=== PATIENT | female | born 1985 | race Caucasian/White ===

== ENCOUNTER 2016-08-18 16:42 | Emergency (ER) | payer BC ==
[~2016-08-18] VITALS: Wt 88.0 kg
[~2016-08-18 16:42] MED LIST: CHOLESTEROL MED; PANT40TA4 PO
[2016-08-18] MEDS ORDERED: DIPHENHYDRAMINE 50 MG INJ IV ONE (18:30)
[2016-08-18] MEDS ORDERED: SOD CHLORIDE 0.9% 1,000 ML IV ONE (18:30)
[2016-08-18] MEDS ORDERED: METOCLOPRAMIDE 10 MG INJ IV ONE (18:30)
[2016-08-18] MEDS ORDERED: SUMA6VIA16 SQ (20:10)
[2016-08-18 20:33] VITALS: BP 135/84; PULSE 84; RESP 20; TEMP 98.2
--- NOTE | 2016-08-22 18:30 | ERD ---
DATE OF SERVICE: 08/18/2016 HISTORY OF PRESENT ILLNESS: This 31-year-old female presents to the emergency room for right-sided throbbing migraine headache that is similar to her previous migraines. It was not responding to ove [id number]-afjmzwk medications. She has no neurologic deficits. headache did not come on suddenly but did gradually get worse. REVIEW OF SYSTEMS: A 10-point review of systems negative except as in the HPI. PAST SURGICAL HISTORY: Gallbladder, right elbow, hysterectomy. PAST MEDICAL HISTORY: Hypercholesterolemia, migraines. SOCIAL HISTORY: Denies tobacco, alcohol and other drugs. FAMILY HISTORY: Noncontributory. PHYSICAL EXAMINATION VITAL SIGNS: Temperature 98.2, pulse 84, blood pressure 135/84, respirations 20, oxygen saturation 100% on room air. EMERGENCY DEPARTMENT COURSE AND MEDICAL DECISION MAKING: The patient is administered migraine cockt ail of normal saline IV, Benadryl IV, Reglan IV. This quickly reduced her headache until she had no headache anymore. She had complained of some right facial numbness as well which was resolved comp letely. We are going to discharge her with Imitrex injections. Primary care followup in next 2 t o 3 days and return precautions given. DISCHARGE DIAGNOSES: 1. Migraine headache. 2. Facial paresthesia. DISPOSITION: Home in stable condition. Dictated By: KENZIE BATES Conf#: [id number] DID#: [id number]
--- NOTE | 2016-09-20 03:27 | QN ---
Documentation Comment This note is an addendum to discharge note from 08/18/16. Physical Exam: General: No distress HEENT: Normocephalic, atraumatic, EOMI, PERRL Neck: No JVD or meningismus Cardiac:RRR Lungs. CTAB Skin: No rashes Neuro: A and O x 3, CN II-XII intact, no cerebellar deficits, normal cristian Ext: No cyanosis or edema KENZIE GALEANA DO Sep 20, 2016 03:27
== END 2016-08-18 20:33 | disposition home or self-care (01) ==
LOC: FTE 16:42
DX: G43.909 Migraine, unspecified, not intractable, without status migrainosus (principal); R20.8 Other disturbances of skin sensation
CPT/HCPCS: 96374; 96375; J1200; J2765; J7030; Z7502

== ENCOUNTER 2016-09-16 17:55 | Emergency (ER) | payer SELFPAY ==
[~2016-09-16] VITALS: Wt 90.0 kg
[~2016-09-16 17:55] MED LIST changes: +SUMA6VIA16 SQ
== END 2016-09-16 21:40 | disposition left against medical advice (07) ==
LOC: FTE 17:55
DX: Z53.21 Procedure and treatment not carried out due to patient leaving prior to being seen by health care provider (principal)

== ENCOUNTER 2017-03-30 14:53 | Emergency (ER) | payer BC ==
[~2017-03-30] VITALS: Ht 157.5 cm; Wt 97.0 kg
[2017-03-30 15:15] VITALS: Ht 157.5 cm; Wt 97.0 kg
[2017-03-30] MEDS ORDERED: SOD CHLORIDE 0.9% 1,000 ML IV STA (16:15)
[2017-03-30] MEDS ORDERED: KETOROLAC 30 MG INJ IV STA (16:15)
[2017-03-30] MEDS ORDERED: ONDANSETRON 4 MG INJ IV STA (16:15)
--- NOTE | 2017-03-30 16:44 | ERA ---
ER Documentation Chief Complaint Date/Time DATE: 03/30/17 TIME: 16:42 Chief Complaint RLQ pain worse with movement, nausea, no vomiting or diarrhea HPI 32-year-old female with a chief complaints of abdominal pain. No similar symptoms in past. History of cholecystectomy, bilateral salpingo-oophorectomy. No similar symptoms in past. Denies alcohol abuse, drug use, sick contacts. Has felt feverish but has not taken temperature. Advil taken this morning with minimal to moderate relief. No other aggravating/alleviating factors. Nursing denies Patient has no other complaints and describes no other associated manifestations. Nursing notes have been reviewed and are consistent with history given. ROS All systems reviewed and are negative except as per history of present illness. Medications Home Meds Active Scripts Sumatriptan Succinate* (Imitrex* Inj) 6 Mg/0.5 Ml Vial, 6 MG SQ DAILY for HEADACHE, #10 VIAL MAX 6 mg/dose, repeat in 1 hour if needed. MAX 12 mg/24 hours Prov:KENZIE GALEANA DO 08/18/16 Reported Medications [Cholesterol Med] No Conflict Check 04/13/16 Pantoprazole* (Pantoprazole*) 40 Mg Tablet.dr, 40 MG PO AC BREAKFAST, TAB 04/13/16 Allergies Allergies: Coded Allergies: azithromycin (Verified Allergy, Unknown, HIVES, 04/13/16) meperidine (Verified Allergy, Unknown, hives, 04/13/16) morphine (Verified Allergy, Unknown, HIVES, 04/13/16) PMhx/Soc History of Surgery: Yes (YEFRI, LAP CHOLEY RIGHT ELBOW , partial hysterectomy ,bi -lateraoophorectomy ) Anesthesia Reaction: No Hx Neurological Disorder: No Hx Respiratory Disorders: No Hx Cardiac Disorders: Yes (HIGH CHOL) Hx Psychiatric Problems: No Hx Miscellaneous Medical Probl: No (Devine's esaphogus ) Hx Alcohol Use: Yes (RARELY) Hx Substance Use: Yes Hx Tobacco Use: Yes Smoking Status: Current some day smoker Physical Exam Vitals Vital Signs Date Time Temp Pulse Resp B/P Pulse Ox O2 Delivery O2 Flow Rate FiO2 03/30/17 15:15 98.4 86 18 136/85 98 Physical Exam Const: Morbidly obese 32-year-old female no acute distress laying on the gurney with initial presentation Abd: Mild right upper quadrant pain. Soft, no rebounding or guarding. Negative Patel sign. Normal bowel sounds auscultated in all 4 quadrants. Percussion unremarkable. Negative Rovsing's, obturators and Patel signs. No McBurney's point tenderness. Head: Atraumatic Eyes: Normal Conjunctiva, PERRLA, EOMI bilaterally. ENT: Normal External Ears, Nose and Mouth. Neck: No lymphadenopathy or other masses palpated. Full range of motion..~ No meningismus. Resp: Clear to auscultation bilaterally Cardio: Regular rate and rhythm, no murmurs Skin: No petechiae or rashes Back: No midline or flank tenderness Ext: No cyanosis, or edema Neur: Awake and alert Psych: Normal Mood and Affect Result Diagram: 03/30/17 1640 03/30/17 1640 Results 24 hrs Laboratory Tests Test 03/30/17 16:40 White Blood Count 10.010^3/ul Red Blood Count 4.5610^6/ul Hemoglobin 13.2g/dl Hematocrit 39.3% Mean Corpuscular Volume 86.2fl Mean Corpuscular Hemoglobin 28.9pg Mean Corpuscular Hemoglobin Concent 33.6g/dl Red Cell Distribution Width 12.9% Platelet Count 89528^3/UL Mean Platelet Volume 11.3fl Neutrophils % 60.5% Lymphocytes % 31.2% Monocytes % 5.1% Eosinophils % 1.8% Basophils % 0.8% Nucleated Red Blood Cells % 0.0/100WBC Neutrophils # (Manual) 6.010^3/ul Lymphocytes # 3.110^3/ul Monocytes # 0.510^3/ul Eosinophils # 0.210^3/ul Basophils # 0.110^3/ul Nucleated Red Blood Cells # 0.010^3/ul Urine Color STRAW Urine Clarity CLEAR Urine pH 6.0 Urine Specific [place] 1.016 Urine Ketones NEGATIVEmg/dL Urine Nitrite NEGATIVEmg/dL Urine Bilirubin NEGATIVEmg/dL Urine Urobilinogen NEGATIVEmg/dL Urine Leukocyte Esterase NEGATIVELeu/ul Urine Hemoglobin NEGATIVEmg/dL Urine Glucose NEGATIVEmg/dL Urine Total Protein NEGATIVEmg/dl Sodium Level 138mmol/L Potassium Level 4.1mmol/L Chloride Level 105mmol/L Carbon Dioxide Level 25mmol/L Anion Gap 12 Blood Urea Nitrogen 13mg/dl Creatinine 0.69mg/dl Glucose Level 95mg/dl Calcium Level 9.7mg/dl Total Bilirubin 0.2mg/dl Direct Bilirubin 0.00mg/dl Indirect Bilirubin 0.2mg/dl Aspartate Amino Transf (AST/SGOT) 44IU/L Alanine Aminotransferase (ALT/SGPT) 82IU/L Alkaline Phosphatase 122IU/L Total Protein 7.8g/dl Albumin 4.0g/dl Globulin 3.80g/dl Albumin/Globulin Ratio 1.05 Lipase 73U/L Current Medications Medications (Trade) Dose Ordered Sig/Keith Route PRN Reason Start Time Stop Time Status Last Admin Dose Admin Sodium Chloride (NS) 1,000 ml @ 1,000 mls/hr Q1H STAT IV 03/30/17 16:15 03/30/17 17:14 DC 03/30/17 16:42 Ondansetron HCl (Zofran Inj) 4 mg ONCE STAT IV 03/30/17 16:15 03/30/17 16:17 DC 03/30/17 16:43 Ketorolac Tromethamine (Toradol) 30 mg ONCE STAT IV 03/30/17 16:15 03/30/17 16:17 DC 03/30/17 16:43 Procedures/MDM as described in history and physical examination. test negative.. CBC: Unremarkable CMP: ALT 82. Alk phos 122. Lipase: Within normal limits Urinalysis: Unremarkable CT was obtained, read by the radiologist, given the following impression: Advanced hepatic steatosis and hepatomegaly. This is a potential cause for right upper quadrant pain. Recommend correlation with liver tests to evaluate for potential steatohepatitis. Prominent right lower quadrant mesenteric lymph nodes may indicate mesenteric adenitis. Appendix is normal. Punctate nonobstructing calculus right kidney and punctate calculus adherent to the anterior wall of the urinary bladder that may be situated in a small urachal remnant. Negative for obstructing calculi. Most of the diagnosis of steatohepatitis versus abdominal pain of unknown etiology. At this time I do not suspect pneumonia, cholangitis, cholecystitis, intestinal ischemia or pyelonephritis. As well as acute hepatitis, appendicitis , acute pancreatitis, or pneumonia. I reviewed these findings with my attending Dr. Celeste montelongo who agrees with the assessment and plan. Upon reevaluation the abdomen has improved and is nontender in the right upper quadrant epigastric regions. Abdomen remains unremarkable in all other areas. The patient is well appearing, and tolerates PO. I have spoke with the patient regarding their condition and future management. They have verbally responded that they understand their status and treatment plan. The patients vitals are stable, and their current condition is appropriate for discharge. The patient will be given discharge instructions with return precautions. Discharge medications: Zofran ODT every 6 hours as needed for nausea Departure Diagnosis: Primary Impression: Abdominal pain Qualified Code: R10.11 - Right upper quadrant abdominal pain Condition: Serious Additional Instructions: Follow up with your PCP within the next 1-3 days for a more thorough evaluation and a possible referral to a specialist. Return the the emergency department immediately if symptoms worsen or change. If you have any questions regarding medications, ask your pharmacist or us before you leave. If any adverse reactions occur while taking your medications, discontinue the treatment and return to the emergency department immediately. Take your medications as directed, and complete the entire course of treatment. GRAYSON BRADLEY PA-C Mar 30, 2017 16:44
[2017-03-30 17:12] LABS: BASOPHIL # 0.1 10^3/ul (0.0-0.1); BASOPHILS % 0.8 % (0.0-2.0); EOSINOPHILS # 0.2 10^3/ul (0.0-0.5); EOSINOPHILS % 1.8 % (0.0-7.0); HEMATOCRIT 39.3 % (37.0-47.0); HEMOGLOBIN 13.2 g/dl (12.0-16.0); LYMPHOCYTES # 3.1 10^3/ul (0.8-2.9); LYMPHOCYTES % 31.2 % (15.0-51.0); MEAN CORPUSCULAR HEMOGLOBIN 28.9 pg (29.0-33.0); MEAN CORPUSCULAR HGB CONC 33.6 g/dl (32.0-37.0); MEAN CORPUSCULAR VOLUME 86.2 fl (82.0-101.0); MEAN PLATELET VOLUME 11.3 fl (7.4-10.4); MONOCYTE # 0.5 10^3/ul (0.3-0.9); MONOCYTES % 5.1 % (0.0-11.0); NEUTROPHILS % 60.5 % (39.0-77.0); PLATELET COUNT 283 10^3/UL (140-415); RED BLOOD COUNT 4.56 10^6/ul (4.20-5.40); RED CELL DISTRIBUTION WIDTH 12.9 % (11.5-14.5)
[2017-03-30 17:17] LABS: ADD UMIC NO; UR ASCORBIC ACID NEGATIVE (NEGATIVE); UR BILIRUBIN (Dip) NEGATIVE (NEGATIVE); UR BLOOD (Dip) NEGATIVE (NEGATIVE); UR CLARITY CLEAR (CLEAR); UR COLOR STRAW (YELLOW); UR GLUCOSE (Dip) NEGATIVE (NEGATIVE); UR KETONES (Dip) NEGATIVE (NEGATIVE); UR LEUKOCYTE ESTERASE (Dip) NEGATIVE Leu/ul (NEGATIVE); UR NITRITE (Dip) NEGATIVE (NEGATIVE); UR SPECIFIC GRAVITY (Dip) 1.016 (1.003-1.030); UR TOTAL PROTEIN (Dip) NEGATIVE (NEGATIVE); UR UROBILINOGEN (Dip) NEGATIVE (NEGATIVE)
[2017-03-30 17:31] LABS: ALBUMIN/GLOBULIN RATIO 1.05; BILIRUBIN,INDIRECT 0.2 mg/dl (0-1.1); BILIRUBIN,TOTAL 0.2 mg/dl (0.2-1.3); CALCIUM 9.7 mg/dl (8.4-10.2); CREATININE 0.69 mg/dl (0.44-1.00); POTASSIUM 4.1 mmol/L (3.5-5.1); TOTAL PROTEIN 7.8 g/dl (6.1-8.1)
--- NOTE | 2017-03-30 18:03 | RADRPT ---
PROCEDURE: CT ABDOMEN AND PELVIS WITHOUT CONTRAST: CLINICAL INDICATION: 32-year of age, female , right lower quadrant abdominal pain. COMPARISON: None available. TECHNIQUE: CT of the abdomen and pelvis was performed without intravenous contrast. Oral contrast wa s not administered prior to the examination. Coronal and sagittal reformatted images were obtained from the axial source images. Images were revi ewed on a high-resolution PACS workstation. Dose information: Based on a 32 cm phantom, the estimated radiation dose (CTDIvol mGy) for each seri es in this exam is 21.8. The estimated cumulative dose (DLP mGy-cm) is 1221 One or more of the following dose reduction techniques were used: - Automated exposure control. - Adjustment of the mA and/or kV according to patient size. - Use of iterative reconstruction technique. FINDINGS: In the absence of intravenous contrast, the study constitutes a limited assessment of the solid orga ns, bowel and vessels. LUNG BASES: Normal noncontrast appearance. ABDOMEN/PELVIS: Liver: Advanced hepatic steatosis. Hepatomegaly. Right hepatic lobe measures 25 cm in length. Gallbladder: Status post cholecystectomy. Bile ducts: No intrahepatic or extrahepatic biliary duct dilatation. Spleen: Normal noncontrast appearance. Pancreas: Normal noncontrast appearance. Adrenal glands: Normal noncontrast appearance. Kidneys and ureters: Punctate nonobstructing calculus lower pole right kidney. Kidneys are otherwise normal. Negative for ureteral calculi or hydronephrosis. Aorta and IVC: Normal noncontrast appearance. Lymph nodes: There are enlarged right lower quadrant mesenteric lymph nodes measuring up to 1.4 cm. Gastrointestinal tract: Normal noncontrast appearance. Appendix: Normal Bladder: There is a punctate calculus adherent to the anterior wall of the urinary bladder at the do me that may be situated in a small urachal remnant. Otherwise normal. Pelvic Organs: Uterus is absent. Ovaries are atrophic. Peritoneal cavity: No free fluid or free intraperitoneal air. Abdominal wall: Normal noncontrast appearance. BONES: Musculoskeletal: No suspicious bone lesions. IMPRESSION: Advanced hepatic steatosis and hepatomegaly. This is a potential cause for right upper quadrant pain . Recommend correlation with liver tests to evaluate for potential steatohepatitis. Prominent right lower quadrant mesenteric lymph nodes may indicate mesenteric adenitis. Appendix is normal. Punctate nonobstructing calculus right kidney and punctate calculus adherent to the anterior wall of the urinary bladder that may be situated in a small urachal remnant. Negative for obstructing calcu li. RPTAT: HCTS Viviana Terry Physician Date Time Electronically viewed and signed by Viviana Terry, Physician on 03/30/2017 18:02 CS/
[2017-03-30] MEDS ORDERED: ONDA4TAB14 PO (18:11)
== END 2017-03-30 20:46 | disposition home or self-care (01) ==
LOC: FTE 14:53
DX: R10.11 Right upper quadrant pain (principal); F17.210 Nicotine dependence, cigarettes, uncomplicated; R10.2 Pelvic and perineal pain
CPT/HCPCS: 36415; 74176; 80053; 81003; 83690; 85025; 96374; 96375; J1885; J2405; J7030; Z7502

== ENCOUNTER 2017-05-26 18:01 | Emergency (ER) | payer BC, OTHER ==
[~2017-05-26] VITALS: Ht 157.5 cm; Wt 97.7 kg
[~2017-05-26 18:01] MED LIST changes: +ONDA4TAB14 PO
[2017-05-26 18:04] VITALS: Ht 157.5 cm; Wt 97.7 kg
[2017-05-26] MEDS ORDERED: SOD CHLORIDE 0.9% 1,000 ML IV STA (20:05)
[2017-05-26] MEDS ORDERED: ONDANSETRON 4 MG INJ IV STA (20:05)
[2017-05-26] MEDS ORDERED: KETOROLAC 30 MG INJ IV STA (20:05)
[2017-05-26 20:51] LABS: BASOPHIL # 0.1 10^3/ul (0.0-0.1); BASOPHILS % 0.9 % (0.0-2.0); EOSINOPHILS # 0.1 10^3/ul (0.0-0.5); EOSINOPHILS % 1.2 % (0.0-7.0); HEMATOCRIT 38.1 % (37.0-47.0); HEMOGLOBIN 12.5 g/dl (12.0-16.0); LYMPHOCYTES # 3.8 10^3/ul (0.8-2.9); LYMPHOCYTES % 36.5 % (15.0-51.0); MEAN CORPUSCULAR HEMOGLOBIN 28.2 pg (29.0-33.0); MEAN CORPUSCULAR HGB CONC 32.8 g/dl (32.0-37.0); MEAN PLATELET VOLUME 11.4 fl (7.4-10.4); MONOCYTE # 0.7 10^3/ul (0.3-0.9); MONOCYTES % 6.3 % (0.0-11.0); NEUTROPHIL # 5.7 10^3/ul (1.6-7.5); NEUTROPHILS % 54.6 % (39.0-77.0); PLATELET COUNT 256 10^3/UL (140-415); RED BLOOD COUNT 4.43 10^6/ul (4.20-5.40); RED CELL DISTRIBUTION WIDTH 13.2 % (11.5-14.5); WHITE BLOOD COUNT 10.4 10^3/ul (4.8-10.8)
--- NOTE | 2017-05-26 20:51 | RADRPT ---
PROCEDURE: Renal US. CLINICAL INDICATION: Low back pain. TECHNIQUE: Multiple sonographic images of the kidneys and urinary bladder were obtained. The imag es were reviewed on a PACS workstation. COMPARISON: CT scan of the abdomen and pelvis dated 03/30/2017. FINDINGS: The right kidney measures 9.7 x 3.9 x 6.0 cm. The left kidney measures 9.7 x 4.6 x 4.9 cm. There is no renal mass. There is no hydronephrosis. There is no renal calculus. Renal parenchymal thickness is normal bilaterally. Echogenicity is normal bilaterally. The perirenal regions are normal with no fluid collection or mass. The urinary bladder is unremarkable. Incidental note is made of hepatomegaly and diffuse increased echogenicity of the liver consistent w ith fatty metamorphosis. IMPRESSION: 1. Normal kidneys and bladder. No hydronephrosis. 2. Hepatomegaly. 3. Fatty metamorphosis of the liver. RPTAT: QQ .Douglas Copeland MD, MD Date Time Electronically viewed and signed by .Douglas Copeland MD, on 05/26/2017 20:50 .R/
[2017-05-26 21:11] LABS: ALBUMIN/GLOBULIN RATIO 1.11; BILIRUBIN,INDIRECT 0.2 mg/dl (0-1.1); BILIRUBIN,TOTAL 0.2 mg/dl (0.2-1.3); CALCIUM 8.9 mg/dl (8.4-10.2); CREATININE 0.73 mg/dl (0.44-1.00); POTASSIUM 3.9 mmol/L (3.5-5.1); TOTAL PROTEIN 7.6 g/dl (6.1-8.1)
[2017-05-26 21:14] LABS: ADD UMIC YES; UR ASCORBIC ACID NEGATIVE (NEGATIVE); UR BILIRUBIN (Dip) NEGATIVE (NEGATIVE); UR BLOOD (Dip) 1+ mg/dL (NEGATIVE); UR CLARITY CLEAR (CLEAR); UR COLOR YELLOW (YELLOW); UR GLUCOSE (Dip) NEGATIVE (NEGATIVE); UR KETONES (Dip) NEGATIVE (NEGATIVE); UR LEUKOCYTE ESTERASE (Dip) NEGATIVE Leu/ul (NEGATIVE); UR NITRITE (Dip) NEGATIVE (NEGATIVE); UR RBC 1 /HPF (0-5); UR SPECIFIC GRAVITY (Dip) 1.025 (1.003-1.030); UR TOTAL PROTEIN (Dip) NEGATIVE (NEGATIVE); UR UROBILINOGEN (Dip) 1+ mg/dL (NEGATIVE)
[2017-05-26] MEDS ORDERED: HYDROmorphONE 1 MG/ML SYG IV STA (21:19)
[2017-05-26] MEDS ORDERED: TRAM50TA2 PO (21:50)
--- NOTE | 2017-05-26 21:59 | ERD ---
ER Documentation Chief Complaint Chief Complaint lower back pain radiating to rt lower abdomen x 3 days with deepali RAM 32-year-old female patient with a past medical history of Devine's esophagitis , status post cholecystectomy, hysterectomy, nephrolithiasis presents to the ED complaining of right flank pain that radiates down to her right lower quadrant that started about 3 days ago. Patient reports that this feels like her nephrolithiasis. States that she has some urgency to urinate this morning. Reports some slight nausea but denies any vomiting. Denies any hematuria, chest pain, shortness of breath, cough, fever, chills, saddle anesthesia, urine or bowel incontinence. ROS All systems reviewed and are negative except as per history of present illness. Medications Home Meds Active Scripts Tramadol HCl (Tramadol HCl) 50 Mg Tablet, 50 MG PO Q6H Y for PAIN, #12 TAB Prov:WILLARD SANCHEZ PA-C 05/26/17 Ondansetron (Ondansetron Odt) 4 Mg Tab.rapdis, 4 MG PO Q6H Y for NAUSEA AND/OR VOMITING, #10 TAB Prov:GRAYSON BRADLEY PA-C 03/30/17 Sumatriptan Succinate* (Imitrex* Inj) 6 Mg/0.5 Ml Vial, 6 MG SQ DAILY for HEADACHE, #10 VIAL MAX 6 mg/dose, repeat in 1 hour if needed. MAX 12 mg/24 hours Prov:KENZIE GALEANA DO 08/18/16 Reported Medications [Cholesterol Med] No Conflict Check 04/13/16 Pantoprazole* (Pantoprazole*) 40 Mg Tablet.dr, 40 MG PO AC BREAKFAST, TAB 04/13/16 Allergies Allergies: Coded Allergies: azithromycin (Verified Allergy, Unknown, HIVES, 04/13/16) meperidine (Verified Allergy, Unknown, hives, 04/13/16) morphine (Verified Allergy, Unknown, HIVES, 04/13/16) PMhx/Soc History of Surgery: Yes (YEFRI, LAP CHOLEY RIGHT ELBOW , partial hysterectomy ,bi -lateraoophorectomy ) Anesthesia Reaction: No Hx Neurological Disorder: No Hx Respiratory Disorders: No Hx Cardiac Disorders: Yes (HIGH CHOL) Hx Psychiatric Problems: No Hx Miscellaneous Medical Probl: No (Devine's esaphogus ) Hx Alcohol Use: Yes (RARELY) Hx Substance Use: Yes Hx Tobacco Use: Yes Smoking Status: Never smoker Physical Exam Vitals Vital Signs Date Time Temp Pulse Resp B/P Pulse Ox O2 Delivery O2 Flow Rate FiO2 05/26/17 18:04 98.3 82 18 136/72 98 Physical Exam Const: Smj-abf-coohdiqoc, well-nourished. In no acute distress. Head: Atraumatic, normocephalic Eyes: Normal Conjunctiva without injection. No purulent discharge. ENT: Normal external ear, nose. Moist oropharynx without tonsillar exudates. Non -erythematous pharynx. Uvula midline. No drooling. No trismus. Neck: No cervical midline tenderness. Full range of motion. No meningismus. No cervical lymphadenopathy. No JVD. Resp: Clear to auscultation bilaterally. No wheezing, rhonchi, rales, or crackles. No accessory muscle use. No retractions. Cardio: Regular rate and rhythm. No murmurs, rubs or gallops. Abd: Soft, nontender, non distended. Normal bowel sounds. No palpable masses. No rebound tenderness. No guarding. Negative McBurney's point. Negative psoas sign. Negative obturator sign. Skin: No petechiae or rashes Back: No midline tenderness. Right CVA tenderness. Ext: No cyanosis, or edema. Neur: Awake and alert. Normal gait. Normal coordination. Psych: Normal Mood and Affect Results 24 hrs Laboratory Tests Test 05/26/17 20:20 White Blood Count 10.410^3/ul Red Blood Count 4.4310^6/ul Hemoglobin 12.5g/dl Hematocrit 38.1% Mean Corpuscular Volume 86.0fl Mean Corpuscular Hemoglobin 28.2pg Mean Corpuscular Hemoglobin Concent 32.8g/dl Red Cell Distribution Width 13.2% Platelet Count 25549^3/UL Mean Platelet Volume 11.4fl Neutrophils % 54.6% Lymphocytes % 36.5% Monocytes % 6.3% Eosinophils % 1.2% Basophils % 0.9% Nucleated Red Blood Cells % 0.0/100WBC Neutrophils # 5.710^3/ul Lymphocytes # 3.810^3/ul Monocytes # 0.710^3/ul Eosinophils # 0.110^3/ul Basophils # 0.110^3/ul Nucleated Red Blood Cells # 0.010^3/ul Urine Color YELLOW Urine Clarity CLEAR Urine pH 6.0 Urine Specific [place] 1.025 Urine Ketones NEGATIVEmg/dL Urine Nitrite NEGATIVEmg/dL Urine Bilirubin NEGATIVEmg/dL Urine Urobilinogen 1+mg/dL Urine Leukocyte Esterase NEGATIVELeu/ul Urine Microscopic RBC 1/HPF Urine Microscopic WBC 1/HPF Urine Hemoglobin 1+mg/dL Urine Glucose NEGATIVEmg/dL Urine Total Protein NEGATIVEmg/dl Sodium Level 139mmol/L Potassium Level 3.9mmol/L Chloride Level 104mmol/L Carbon Dioxide Level 25mmol/L Anion Gap 14 Blood Urea Nitrogen 11mg/dl Creatinine 0.73mg/dl Glucose Level 98mg/dl Calcium Level 8.9mg/dl Total Bilirubin 0.2mg/dl Direct Bilirubin 0.00mg/dl Indirect Bilirubin 0.2mg/dl Aspartate Amino Transf (AST/SGOT) 46IU/L Alanine Aminotransferase (ALT/SGPT) 84IU/L Alkaline Phosphatase 126IU/L Total Protein 7.6g/dl Albumin 4.0g/dl Globulin 3.60g/dl Albumin/Globulin Ratio 1.11 Lipase 71U/L Current Medications Medications (Trade) Dose Ordered Sig/Keith Route PRN Reason Start Time Stop Time Status Last Admin Dose Admin Sodium Chloride (NS) 1,000 ml @ 1,000 mls/hr Q1H STAT IV 05/26/17 20:05 05/26/17 21:04 DC 05/26/17 20:37 Ketorolac Tromethamine (Toradol) 30 mg ONCE STAT IV 05/26/17 20:05 05/26/17 20:09 DC 05/26/17 20:37 Ondansetron HCl (Zofran Inj) 4 mg ONCE STAT IV 05/26/17 20:05 05/26/17 20:09 DC 05/26/17 20:37 Hydromorphone HCl (Dilaudid) 1 mg ONCE STAT IV 05/26/17 21:19 05/26/17 21:20 DC 05/26/17 21:23 Procedures/MDM 32-year-old female patient with a past medical history of Devine's esophagitis , status post cholecystectomy, hysterectomy, nephrolithiasis presents to the ED complaining of right flank pain that radiates down to her right lower quadrant started 3 days ago associated with nausea. Patient is afebrile and nontoxic- appearing. Patient has normal vital signs. Patient was further worked up with CBC, CMP, lipase, UA, renal ultrasound. Patient just received a CT of the abdomen and pelvis without contrast in March 2017 which showed no evidence of appendicitis however there was suspected nephrolithiasis. There is no indication to repeat a CT of the abdomen and pelvis without contrast at this time as the risks of radiation outweigh the benefits. Patient reports that this feels exactly like her kidney stone pain. Patient's pain and symptoms have improved after treatment with 30 mg IV Toradol, 1 L normal saline, 1 mg IV Dilaudid. CBC: No leukocytosis. No e/o of systemic infection. No e/o anemia. CMP: No e/o severe acidosis, alkalosis, renal failure, diabetic ketoacidosis, liver disease Lipase within normal limits. Urine: No leukocyte esterase, no nitrites, 1+ hematuria. Urine : Negative PROCEDURE: Renal US. CLINICAL INDICATION: Low back pain. TECHNIQUE: Multiple sonographic images of the kidneys and urinary bladder were obtained. The images were reviewed on a PACS workstation. COMPARISON: CT scan of the abdomen and pelvis dated 03/30/2017. FINDINGS: The right kidney measures 9.7 x 3.9 x 6.0 cm. The left kidney measures 9.7 x 4.6 x 4.9 cm. There is no renal mass. There is no hydronephrosis. There is no renal calculus. Renal parenchymal thickness is normal bilaterally. Echogenicity is normal bilaterally. The perirenal regions are normal with no fluid collection or mass. The urinary bladder is unremarkable. Incidental note is made of hepatomegaly and diffuse increased echogenicity of the liver consistent with fatty metamorphosis. IMPRESSION: 1. Normal kidneys and bladder. No hydronephrosis. 2. Hepatomegaly. 3. Fatty metamorphosis of the liver. Hematuria noted on urinalysis. Differentials include nephrolithiasis. Low suspicion for ectopic , ovarian torsion, gastritis, GERD, peptic ulcer disease, cholecystitis, choledocholithiasis, cholangitis, pancreatitis, appendicitis, bowel obstruction, ileus, volvulus, urinary tract infection, pyelonephritis, hepatitis, perforated viscus, diverticulitis, strangulated/ incarcerated hernia, DKA, acute abdomen, mesenteric ischemia or other emergent conditions. Discharge medications: Tramadol Follow up with primary care physician in 1-2 days for referral to urologist. Instructed patient to return to the ED sooner for any worsening symptoms. Patient's questions were answered. Patient understood and agreed with discharge plan. Patient discharged stable. Departure Diagnosis: Primary Impression: Flank pain Additional Impression: Abdominal pain Abdominal location: unspecified location Qualified Code: R10.9 - Abdominal pain, unspecified abdominal location Patient Instructions: Abdominal Pain, Flank Pain, Uncertain Cause, Kidney Stone (Urine) Referrals: [facility] YOU HAVE RECEIVED A MEDICAL SCREENING EXAM AND THE RESULTS INDICATE THAT YOU DO NOT HAVE A CONDITION THAT REQUIRES URGENT TREATMENT IN THE EMERGENCY DEPARTMENT. FURTHER EVALUATION AND TREATMENT OF YOUR CONDITION CAN WAIT UNTIL YOU ARE SEEN IN YOUR DOCTORS OFFICE WITHIN THE NEXT 1-2 DAYS. IT IS YOUR RESPONSIBILITY TO MAKE AN APPOINTMENT FOR FOLOW-UP CARE. IF YOU HAVE A PRIMARY DOCTOR --you should call your primary doctor and schedule an appointment IF YOU DO NOT HAVE A PRIMARY DOCTOR YOU CAN CALL OUR PHYSICIAN REFERRAL HOTLINE AT IF YOU CAN NOT AFFORD TO SEE A PHYSICIAN YOU CAN CHOSE FROM THE FOLLOWING [facility] [address] [facility]. [facility] [address] [facility]. [facility] [address] [facility] [facility] [address] [facility]. [facility] [address] [facility]. [facility]. [address] [facility]. [facility] YOU HAVE RECEIVED A MEDICAL SCREENING EXAM AND THE RESULTS INDICATE THAT YOU DO NOT HAVE A CONDITION THAT REQUIRES URGENT TREATMENT IN THE EMERGENCY DEPARTMENT. FURTHER EVALUATION AND TREATMENT OF YOUR CONDITION CAN WAIT UNTIL YOU ARE SEEN IN YOUR DOCTORS OFFICE WITHIN THE NEXT 1-2 DAYS. IT IS YOUR RESPONSIBILITY TO MAKE AN APPOINTMENT FOR FOLOW-UP CARE. IF YOU HAVE A PRIMARY DOCTOR --you should call your primary doctor and schedule and appointment IF YOU DO NOT HAVE A PRIMARY DOCTOR YOU CAN CALL OUR PHYSICIAN REFERRAL HOTLINE AT . IF YOU CAN NOT AFFORD TO SEE A PHYSICIAN YOU CAN CHOSE FROM THE FOLLOWING [facility]: [facility] [address] [place] [address] [facility] [address] [place] [address] [facility] + [facility] [address] [place] [address] [facility] URGENT CARE/SPECIALTIES Additional Instructions: Call your primary care doctor TOMORROW for an appointment during the next 2-3 days.See the doctor sooner or return here if your condition worsens before your appointment time. WILLARD SANCHEZ PA-C May 26, 2017 21:59 WILLARD SANCHEZ PA-C May 26, 2017 21:59
[2017-05-26 22:00] VITALS: BP 124/79; PULSE 74; RESP 18
--- NOTE | 2017-05-26 23:17 | ERD ---
ER Documentation Chief Complaint Chief Complaint lower back pain radiating to rt lower abdomen x 3 days with deepali ROS All systems reviewed and are negative except as per history of present illness. Medications Home Meds Active Scripts Tramadol HCl (Tramadol HCl) 50 Mg Tablet, 50 MG PO Q6H Y for PAIN, #12 TAB Prov:WILLARD SANCHEZ PA-C 05/26/17 Ondansetron (Ondansetron Odt) 4 Mg Tab.rapdis, 4 MG PO Q6H Y for NAUSEA AND/OR VOMITING, #10 TAB Prov:GRAYSON BRADLEY PA-C 03/30/17 Sumatriptan Succinate* (Imitrex* Inj) 6 Mg/0.5 Ml Vial, 6 MG SQ DAILY for HEADACHE, #10 VIAL MAX 6 mg/dose, repeat in 1 hour if needed. MAX 12 mg/24 hours Prov:KENZIE GALEANA DO 08/18/16 Reported Medications [Cholesterol Med] No Conflict Check 04/13/16 Pantoprazole* (Pantoprazole*) 40 Mg Tablet.dr, 40 MG PO AC BREAKFAST, TAB 04/13/16 Allergies Allergies: Coded Allergies: azithromycin (Verified Allergy, Unknown, HIVES, 04/13/16) meperidine (Verified Allergy, Unknown, hives, 04/13/16) morphine (Verified Allergy, Unknown, HIVES, 04/13/16) PMhx/Soc History of Surgery: Yes (YEFRI, LAP CHOLEY RIGHT ELBOW , partial hysterectomy ,bi -lateraoophorectomy ) Anesthesia Reaction: No Hx Neurological Disorder: No Hx Respiratory Disorders: No Hx Cardiac Disorders: Yes (HIGH CHOL) Hx Psychiatric Problems: No 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 Neck: Full range of motion..~ No meningismus. Resp: Clear to auscultation bilaterally Cardio: Regular rate and rhythm, no murmurs Abd: Soft, non tender, non distended. Normal bowel sounds Skin: No petechiae or rashes Back: No midline or flank tenderness Ext: No cyanosis, or edema Neur: Awake and alert Psych: Normal Mood and Affect Results 24 hrs Laboratory Tests Test 05/26/17 20:20 White Blood Count 10.410^3/ul Red Blood Count 4.4310^6/ul Hemoglobin 12.5g/dl Hematocrit 38.1% Mean Corpuscular Volume 86.0fl Mean Corpuscular Hemoglobin 28.2pg Mean Corpuscular Hemoglobin Concent 32.8g/dl Red Cell Distribution Width 13.2% Platelet Count 51203^3/UL Mean Platelet Volume 11.4fl Neutrophils % 54.6% Lymphocytes % 36.5% Monocytes % 6.3% Eosinophils % 1.2% Basophils % 0.9% Nucleated Red Blood Cells % 0.0/100WBC Neutrophils # 5.710^3/ul Lymphocytes # 3.810^3/ul Monocytes # 0.710^3/ul Eosinophils # 0.110^3/ul Basophils # 0.110^3/ul Nucleated Red Blood Cells # 0.010^3/ul Urine Color YELLOW Urine Clarity CLEAR Urine pH 6.0 Urine Specific [place] 1.025 Urine Ketones NEGATIVEmg/dL Urine Nitrite NEGATIVEmg/dL Urine Bilirubin NEGATIVEmg/dL Urine Urobilinogen 1+mg/dL Urine Leukocyte Esterase NEGATIVELeu/ul Urine Microscopic RBC 1/HPF Urine Microscopic WBC 1/HPF Urine Hemoglobin 1+mg/dL Urine Glucose NEGATIVEmg/dL Urine Total Protein NEGATIVEmg/dl Sodium Level 139mmol/L Potassium Level 3.9mmol/L Chloride Level 104mmol/L Carbon Dioxide Level 25mmol/L Anion Gap 14 Blood Urea Nitrogen 11mg/dl Creatinine 0.73mg/dl Glucose Level 98mg/dl Calcium Level 8.9mg/dl Total Bilirubin 0.2mg/dl Direct Bilirubin 0.00mg/dl Indirect Bilirubin 0.2mg/dl Aspartate Amino Transf (AST/SGOT) 46IU/L Alanine Aminotransferase (ALT/SGPT) 84IU/L Alkaline Phosphatase 126IU/L Total Protein 7.6g/dl Albumin 4.0g/dl Globulin 3.60g/dl Albumin/Globulin Ratio 1.11 Lipase 71U/L Current Medications Medications (Trade) Dose Ordered Sig/Keith Route PRN Reason Start Time Stop Time Status Last Admin Dose Admin Sodium Chloride (NS) 1,000 ml @ 1,000 mls/hr Q1H STAT IV 05/26/17 20:05 05/26/17 21:04 DC 05/26/17 20:37 Ketorolac Tromethamine (Toradol) 30 mg ONCE STAT IV 05/26/17 20:05 05/26/17 20:09 DC 05/26/17 20:37 Ondansetron HCl (Zofran Inj) 4 mg ONCE STAT IV 05/26/17 20:05 05/26/17 20:09 DC 05/26/17 20:37 Hydromorphone HCl (Dilaudid) 1 mg ONCE STAT IV 05/26/17 21:19 05/26/17 21:20 DC 05/26/17 21:23 Departure Diagnosis: Primary Impression: Flank pain Additional Impression: Abdominal pain Abdominal location: unspecified location Qualified Code: R10.9 - Abdominal pain, unspecified abdominal location Patient Instructions: Abdominal Pain, Flank Pain, Uncertain Cause, Kidney Stone (Urine) Referrals: [facility] YOU HAVE RECEIVED A MEDICAL SCREENING EXAM AND THE RESULTS INDICATE THAT YOU DO NOT HAVE A CONDITION THAT REQUIRES URGENT TREATMENT IN THE EMERGENCY DEPARTMENT. FURTHER EVALUATION AND TREATMENT OF YOUR CONDITION CAN WAIT UNTIL YOU ARE SEEN IN YOUR DOCTORS OFFICE WITHIN THE NEXT 1-2 DAYS. IT IS YOUR RESPONSIBILITY TO MAKE AN APPOINTMENT FOR FOLOW-UP CARE. IF YOU HAVE A PRIMARY DOCTOR --you should call your primary doctor and schedule an appointment IF YOU DO NOT HAVE A PRIMARY DOCTOR YOU CAN CALL OUR PHYSICIAN REFERRAL HOTLINE AT IF YOU CAN NOT AFFORD TO SEE A PHYSICIAN YOU CAN CHOSE FROM THE FOLLOWING FORMERLY [facility] [address] [facility]. [facility] [address] [facility]. [facility] [address] [facility]. [facility] [address] [facility]. [facility] [address] [facility] [facility] [address] [facility]. [facility] YOU HAVE RECEIVED A MEDICAL SCREENING EXAM AND THE RESULTS INDICATE THAT YOU DO NOT HAVE A CONDITION THAT REQUIRES URGENT TREATMENT IN THE EMERGENCY DEPARTMENT. FURTHER EVALUATION AND TREATMENT OF YOUR CONDITION CAN WAIT UNTIL YOU ARE SEEN IN YOUR DOCTORS OFFICE WITHIN THE NEXT 1-2 DAYS. IT IS YOUR RESPONSIBILITY TO MAKE AN APPOINTMENT FOR FOLOW-UP CARE. IF YOU HAVE A PRIMARY DOCTOR --you should call your primary doctor and schedule and appointment IF YOU DO NOT HAVE A PRIMARY DOCTOR YOU CAN CALL OUR PHYSICIAN REFERRAL HOTLINE AT . IF YOU CAN NOT AFFORD TO SEE A PHYSICIAN YOU CAN CHOSE FROM THE FOLLOWING [facility] INSTITUTIONS: [facility] [address] [place] [address] [facility] [address] [place] [address] [facility] [address] [place] [address] [facility] Additional Instructions: Call your primary care doctor TOMORROW for an appointment during the next 2-3 days.See the doctor sooner or return here if your condition worsens before your appointment time. WILLARD SANCHEZ PA-C May 26, 2017 22:02 [place] [address] [facility]RG[facility]SPECIALTIES Additional Instructions: Call your primary care doctor TOMORROW for an appointment during the next 2-3 days.See the doctor sooner or return here if your condition worsens before your appointment time. WILLARD SANCHEZ PA-C May 26, 2017 22:02
== END 2017-05-26 22:01 | disposition home or self-care (01) ==
LOC: FTE 18:01
DX: M54.5 Low back pain (principal); R11.0 Nausea; R10.31 Right lower quadrant pain; Z87.891 Personal history of nicotine dependence
CPT/HCPCS: 36415; 76775; 80053; 81001; 83690; 85025; 96374; 96375; J1170; J1885; J2405; J7030; Z7502

== ENCOUNTER 2017-07-21 07:46 | Emergency (ER) | END 2017-07-21 11:33 | disposition home or self-care (01) ==

== ENCOUNTER 2017-10-30 15:41 | Emergency (ER) | END 2017-10-30 18:09 | disposition home or self-care (01) ==

== ENCOUNTER 2018-04-19 17:50 | Emergency (ER) | END 2018-04-19 19:50 | disposition home or self-care (01) ==

== ENCOUNTER 2018-10-18 08:59 | Emergency (ER) | payer OTHER ==
[~2018-10-18] VITALS: Wt 84.1 kg
[~2018-10-18 08:59] MED LIST changes: +CEPH-443 PO; +CIPR-193 PO; +DIPH1TAB PO; +DOCU-144 PO; +IBUP-1541 PO; +IBUP-1542 PO; +ONDA4TAB8 PO; +POLY17PO6 PO; +TRAM50TA2 PO
[2018-10-18 09:00] VITALS: BP 129/82; PULSE 73; RESP 18
[2018-10-18] MEDS ORDERED: ONDANSETRON (ODT) 4 MG TAB ODT STA (09:36)
[2018-10-18] MEDS ORDERED: ONDA4TAB14 PO (10:16)
--- NOTE | 2018-10-18 10:19 | ERD ---
ER Documentation Chief Complaint Chief Complaint AP WITH VOMITIG TODAY HPI 33-year-old female presents the emergency department complaining of vomiting. Patient states that over the last 24 hours, she has had a low-grade fever as well as nonbilious, nonbloody emesis. She reports no localizing abdominal pain. She reports no urinary symptoms. Patient reports no diarrhea. She reports no vaginal bleeding or discharge. She reports no significant abdominal pain at this time the main discomfort is really more than nausea than it is discomfort. ROS All systems reviewed and are negative except as per history of present illness. Medications Home Meds Active Scripts Ondansetron (Ondansetron Odt) 4 Mg Tab.rapdis, 4 MG PO Q6H PRN for NAUSEA AND/OR VOMITING, #10 TAB Prov:DARIA FRANCE 10/18/18 Ondansetron Hcl* (Zofran*) 4 Mg Tablet, 4 MG PO Q8 for NAUSEA AND/OR VOMITING, #15 TAB Prov:PATRICIA OCONNELL MD 04/19/18 Diphenoxylate HCl/Atropine (Lomotil 2.5-0.025 mg Tablet) 1 Each Tablet, 1 TAB PO DAILY PRN for DIARRHEA, #5 TAB Prov:PATRICIA OCONNELL MD 04/19/18 Ciprofloxacin Hcl* (Ciprofloxacin Hcl*) 250 Mg Tablet, 250 MG PO BID for 5 Days, #10 TAB Prov:PATRICIA OCONNELL MD 04/19/18 Ondansetron Hcl* (Zofran*) 4 Mg Tablet, 4 MG PO Q6H for NAUSEA AND/OR VOMITING, #30 TAB Prov:DREA BURGESS 10/30/17 Ibuprofen* (Motrin*) 600 Mg Tab, 600 MG PO Q6, #30 TAB Prov:DREA BURGESS 10/30/17 Cephalexin* (Keflex*) 500 Mg Capsule, 500 MG PO BID for 7 Days, CAP Prov:DREA BURGESS 10/30/17 Docusate Sodium* (Colace*) 100 Mg Capsule, 100 MG PO TID, #30 CAP Prov:IRIS RIZO PA-C 07/21/17 Polyethylene Glycol* (Miralax*) 17 Gm Powd.pack, 17 GM PO DAILY, #7 Prov:IRIS RIZO PA-C 07/21/17 Ibuprofen* (Ibuprofen*) 400 Mg Tablet, 400 MG PO Q6H PRN for PAIN, #30 TAB Prov:IRIS RIZO PA-C 07/21/17 Tramadol HCl (Tramadol HCl) 50 Mg Tablet, 50 MG PO Q6H PRN for PAIN, #12 TAB Prov:WILLARD SANCHEZ PA-C 05/26/17 Ondansetron (Ondansetron Odt) 4 Mg Tab.rapdis, 4 MG PO Q6H PRN for NAUSEA AND/OR VOMITING, #10 TAB Prov:GRAYSON BRADLEY PA-C 03/30/17 Sumatriptan Succinate* (Imitrex* Inj) 6 Mg/0.5 Ml Vial, 6 MG SQ DAILY for HEADACHE, #10 VIAL MAX 6 mg/dose, repeat in 1 hour if needed. MAX 12 mg/24 hours Prov:KENZIE GALEANA DO 08/18/16 Reported Medications [Cholesterol Med] No Conflict Check 04/13/16 Pantoprazole* (Pantoprazole*) 40 Mg Tablet.dr, 40 MG PO AC BREAKFAST, TAB 04/13/16 Allergies Allergies: Coded Allergies: azithromycin (Verified Allergy, Unknown, HIVES, 10/30/17) meperidine (Verified Allergy, Unknown, hives, 10/30/17) morphine (Verified Allergy, Unknown, HIVES, 10/30/17) PMhx/Soc History of Surgery: Yes (hysterectomy, right elbow sx) Anesthesia Reaction: No Hx Neurological Disorder: No Hx Respiratory Disorders: Yes (SUMMERS'S ESOPHAGUS) Hx Cardiac Disorders: Yes (HTN) Hx Psychiatric Problems: No Hx Miscellaneous Medical Probl: Yes (HERNIA) Hx Alcohol Use: No Hx Substance Use: Yes (FORMER METH) Hx Tobacco Use: No Smoking Status: Never smoker Physical Exam Vitals Vital Signs Date Temp Pulse Resp B/P (MAP) Pulse Ox O2 O2 Flow FiO2 Time Delivery Rate 10/18/18 97.8 73 18 129/82 99 09:00 (98) Physical Exam GENERAL: The patient is well developed and appropriate for usual state of health in no apparent distress HEENT: Pupils equal, round, and reactive to light. EOMI. There is no scleral icterus. NECK: C-spine is soft and supple, there is no meningismus. There is no cervical lymphadenopathy. LUNGS: Clear to auscultation bilaterally. There are no rales, wheezes or rhonchi. HEART: Regular rate and rhythm, no murmurs, clicks, rubs or gallops. ABDOMEN: Soft, non-tender, non-distended. There are bowel sounds in all four quadrants. No rebound or guarding. No right lower quadrant tenderness. No CVA tenderness. EXTREMITIES: There is no peripheral cyanosis or edema. No focal swelling or erythema. NEURO: The patient moves all four extremities with 5/5 strength. Cranial nerves II - XII are intact. Normal gait. Alert and oriented SKIN: There is no apparent rash or petechiae. HEME/LYMPHATIC: There is no evidence of excessive bruising or lymphedema. PSYCHIATRIC: The patient does not appear anxious or depressed. Results 24 hrs Laboratory Tests Test 10/18/18 09:43 Urine Color LUNA Urine Clarity SLIGHTLY CLOUDY Urine pH 5.0 Urine Specific [place] 1.027 Urine Ketones TRACE mg/dL Urine Nitrite NEGATIVE mg/dL Urine Bilirubin NEGATIVE mg/dL Urine Urobilinogen 2+ mg/dL Urine Leukocyte Esterase NEGATIVE Emeka/ul Urine Microscopic RBC 1 /HPF Urine Microscopic WBC 1 /HPF Urine Squamous Epithelial Cells FEW /HPF Urine Mucus MODERATE /HPF Urine Hemoglobin 1+ mg/dL Urine Glucose NEGATIVE mg/dL Urine Total Protein NEGATIVE mg/dl Current Medications Medications Dose Sig/Keith Start Time Status Last (Trade) Ordered Route PRN Stop Time Admin Dose Reason Admin Ondansetron 4 mg ONCE STAT 10/18/18 DC 10/18/18 HCl (Zofran ODT 09:36 09:42 Odt) 10/18/18 09:37 Procedures/MDM Patient was taken to a room, seen and examined Medical decision making: Patient presents with fever and abdominal pain of uncertain etiology. Differential diagnosis considered includes appendicitis, diverticulitis, and other intra-abdominal medical and surgical concerns. Patient's urinalysis showed no evidence of urinary tract infection. Her clinical examination is not consistent with appendicitis. She is already had her uterus and gallbladder removed. After supportive care, she appears to be clinically nontoxic and appropriate for discharge. Departure Diagnosis: Primary Impression: Gastroenteritis Condition: Stable Patient Instructions: Vomiting (5Y-Adult) Additional Instructions: Try tylenol for the fever. Use the zofran for nausea. Return immediately if there is any pain in the right lower part of your abdomen, or if any of your symptoms get worse. DARIA FRANCE Oct 18, 2018 10:19
== END 2018-10-18 10:33 | disposition home or self-care (01) ==
LOC: FTE 08:59
DX: K52.9 Noninfective gastroenteritis and colitis, unspecified (principal); I10 Essential (primary) hypertension
CPT/HCPCS: 81001; Z7502; Z7610; 99283

== ENCOUNTER 2018-12-21 18:07 | Emergency (ER) | payer OTHER ==
[~2018-12-21] VITALS: Ht 157.5 cm; Wt 99.2 kg
[2018-12-21 18:13] VITALS: Ht 157.5 cm; Wt 99.2 kg
[2018-12-21] MEDS ORDERED: ONDANSETRON 4 MG INJ IV STA (19:04)
[2018-12-21] MEDS ORDERED: KETOROLAC 30 MG INJ IV STA (19:04)
[2018-12-21] MEDS ORDERED: KETOROLAC 60 MG INJ IM STA (19:37)
[2018-12-21] MEDS ORDERED: ONDANSETRON (ODT) 4 MG TAB ODT STA (19:37)
[2018-12-21] MEDS ORDERED: TRAM50TA PO (21:09)
[2018-12-21] MEDS ORDERED: IBUP-1542 PO (21:09)
--- NOTE | 2018-12-21 21:12 | ERD ---
ER Documentation Chief Complaint Chief Complaint SHOOTING PAIN @ INGUINAL RADIATES TO BACK AND LEGS HPI 33-year-old female presents with 3-day history of pain in her left lower abdomen. She also has low back pain rating to her anterior leg patient has a history of trauma or inciting events. She denies any bowel bladder incontinen ce, groin numbness, deficits, fevers, vomiting, shortness of breath. ROS All systems reviewed and are negative except as per history of present illness. Medications Home Meds Active Scripts Tramadol Hcl* (Ultram*) 50 Mg Tablet, 50 MG PO Q6H PRN for PAIN, #20 TAB Prov:KEVIN HOPPER MD 12/21/18 Ibuprofen* (Motrin*) 600 Mg Tab, 600 MG PO Q6, #20 TAB Prov:KEVIN HOPPER MD 12/21/18 Ondansetron (Ondansetron Odt) 4 Mg Tab.rapdis, 4 MG PO Q6H PRN for NAUSEA AND/OR VOMITING, #10 TAB Prov:DARIA FRANCE 10/18/18 Ondansetron Hcl* (Zofran*) 4 Mg Tablet, 4 MG PO Q8 for NAUSEA AND/OR VOMITING, #15 TAB Prov:PATRICIA OCONNELL MD 04/19/18 Diphenoxylate HCl/Atropine (Lomotil 2.5-0.025 mg Tablet) 1 Each Tablet, 1 TAB PO DAILY PRN for DIARRHEA, #5 TAB Prov:PATRICIA OCONNELL MD 04/19/18 Ciprofloxacin Hcl* (Ciprofloxacin Hcl*) 250 Mg Tablet, 250 MG PO BID for 5 Days, #10 TAB Prov:PATRICIA OCONNELL MD 04/19/18 Ondansetron Hcl* (Zofran*) 4 Mg Tablet, 4 MG PO Q6H for NAUSEA AND/OR VOMITING, #30 TAB Prov:DREA BURGESS 10/30/17 Ibuprofen* (Motrin*) 600 Mg Tab, 600 MG PO Q6, #30 TAB Prov:DREA BURGESS 10/30/17 Cephalexin* (Keflex*) 500 Mg Capsule, 500 MG PO BID for 7 Days, CAP Prov:DREA BURGESS 10/30/17 Docusate Sodium* (Colace*) 100 Mg Capsule, 100 MG PO TID, #30 CAP Prov:IRIS RIZO PA-C 07/21/17 Polyethylene Glycol* (Miralax*) 17 Gm Powd.pack, 17 GM PO DAILY, #7 Prov:IRIS RIZO PA-C 07/21/17 Ibuprofen* (Ibuprofen*) 400 Mg Tablet, 400 MG PO Q6H PRN for PAIN, #30 TAB Prov:IRIS RIZO PA-C 07/21/17 Tramadol HCl (Tramadol HCl) 50 Mg Tablet, 50 MG PO Q6H PRN for PAIN, #12 TAB Prov:WILLARD SANCHEZ PA-C 05/26/17 Ondansetron (Ondansetron Odt) 4 Mg Tab.rapdis, 4 MG PO Q6H PRN for NAUSEA AND/OR VOMITING, #10 TAB Prov:GRAYSON BRADLEY PA-C 03/30/17 Sumatriptan Succinate* (Imitrex* Inj) 6 Mg/0.5 Ml Vial, 6 MG SQ DAILY for HEADACHE, #10 VIAL MAX 6 mg/dose, repeat in 1 hour if needed. MAX 12 mg/24 hours Prov:KENZIE GALEANA DO 08/18/16 Reported Medications [Cholesterol Med] No Conflict Check 04/13/16 Pantoprazole* (Pantoprazole*) 40 Mg Tablet.dr, 40 MG PO AC BREAKFAST, TAB 04/13/16 Allergies Allergies: Coded Allergies: azithromycin (Verified Allergy, Unknown, HIVES, 10/30/17) meperidine (Verified Allergy, Unknown, hives, 10/30/17) morphine (Verified Allergy, Unknown, HIVES, 10/30/17) PMhx/Soc History of Surgery: Yes (Hysterectomy, BG sx, Rt elbow surgery.) Anesthesia Reaction: No Hx Neurological Disorder: No Hx Respiratory Disorders: No Hx Cardiac Disorders: No Hx Psychiatric Problems: No Hx Miscellaneous Medical Probl: No Hx Alcohol Use: No Hx Substance Use: No Hx Tobacco Use: No Smoking Status: Never smoker FmHx Family History: No diabetes, No coronary disease, No other Physical Exam Vitals Vital Signs Date Temp Pulse Resp B/P (MAP) Pulse Ox O2 O2 Flow FiO2 Time Delivery Rate 12/21/18 98.8 73 18 124/79 98 18:13 (94) Physical Exam Const: No acute distress Head: Atraumatic Eyes: Normal Conjunctiva ENT: Normal External Ears, Nose and Mouth. Neck: Full range of motion. No meningismus. Resp: Clear to auscultation bilaterally Cardio: Regular rate and rhythm, no murmurs Abd: Soft, left lower abdomen. Rebound, masses. No tenderness McBurney's point no Patel sign. Non distended. Normal bowel sounds Skin: No petechiae or rashes Back: No midline or flank tenderness tenderness bilaterally L4-L5 area. No flank tenderness. No midline tenderness or deformities. Ext: No cyanosis, or edema Neur: Awake and alert. No appreciable focal neurologic deficits. Normal gait. Psych: Normal Mood and Affect Result Diagram: 12/21/18191512/21/181915 Results 24 hrs Laboratory Tests Test 12/21/18 19:10 12/21/18 19:15 12/21/18 19:16 Urine Color STRAW Urine Clarity CLEAR Urine pH 7.0 Urine Specific [place] 1.006 Urine Ketones NEGATIVE mg/dL Urine Nitrite NEGATIVE mg/dL Urine Bilirubin NEGATIVE mg/dL Urine Urobilinogen NEGATIVE mg/dL Urine Leukocyte Esterase NEGATIVE Emeka/ul Urine Hemoglobin NEGATIVE mg/dL Urine Glucose NEGATIVE mg/dL Urine Total Protein NEGATIVE mg/dl POC Beta HCG, Qualitative NEGATIVE White Blood Count 9.0 10^3/ul Red Blood Count 4.45 10^6/ul Hemoglobin 12.7 g/dl Hematocrit 37.8 % Mean Corpuscular Volume 84.9 fl Mean Corpuscular Hemoglobin 28.5 pg Mean Corpuscular 33.6 g/dl Hemoglobin Concent Red Cell Distribution Width 12.7 % Platelet Count 272 10^3/UL Mean Platelet Volume 11.1 fl Immature Granulocytes % 0.300 % Neutrophils % 52.2 % Lymphocytes % 39.1 % Monocytes % 5.5 % Eosinophils % 1.9 % Basophils % 1.0 % Nucleated Red Blood Cells % 0.0 /100WBC Immature Granulocytes # 0.030 10^3/ul Neutrophils # 4.7 10^3/ul Lymphocytes # 3.5 10^3/ul Monocytes # 0.5 10^3/ul Eosinophils # 0.2 10^3/ul Basophils # 0.1 10^3/ul Nucleated Red Blood Cells # 0.0 10^3/ul Sodium Level 140 mmol/L Potassium Level 3.8 mmol/L Chloride Level 105 mmol/L Carbon Dioxide Level 27 mmol/L Anion Gap 8 Blood Urea Nitrogen 12 mg/dl Creatinine 0.72 mg/dl Est Glomerular Filtrat > 60 mL/min Rate mL/min Glucose Level 99 mg/dl Calcium Level 9.9 mg/dl Total Bilirubin 0.4 mg/dl Direct Bilirubin 0.00 mg/dl Indirect Bilirubin 0.4 mg/dl Aspartate Amino 36 IU/L Transf (AST/SGOT) Alanine 54 IU/L Aminotransferase (ALT/SGPT) Alkaline Phosphatase 117 IU/L Total Protein 7.9 g/dl Albumin 4.3 g/dl Globulin 3.60 g/dl Albumin/Globulin Ratio 1.19 Lipase 65 U/L Current Medications Medications Dose Sig/Keith Start Time Status Last (Trade) Ordered Route PRN Stop Time Admin Dose Reason Admin Ondansetron 4 mg ONCE STAT 12/21/18 DC HCl (Zofran IV 19:04 Inj) 12/21/18 19:38 Ketorolac 30 mg ONCE STAT 12/21/18 DC Tromethamine IV 19:04 (Toradol) 12/21/18 19:38 Ondansetron 8 mg ONCE STAT 12/21/18 DC 12/21/18 HCl (Zofran ODT 19:37 19:48 Odt) 12/21/18 19:38 Ketorolac 60 mg ONCE STAT 12/21/18 DC 12/21/18 Tromethamine IM 19:37 19:47 (Toradol) 12/21/18 19:38 Procedures/MDM Patient presents low back pain as well as left lower quadrant abdominal pain of uncertain etiology. She does have a history of kidney stones but pain is different according to patient. CBC and CMP and urine normal. hCG negative. CT abdomen pelvis shows no acute abnormalities. Patient was given Toradol for pain. Patient had improved pain after observation treatment without concerning signs or symptoms. Patient may have referred pain from her back causing her left lower quadrant abdominal pain. She has no signs of hernia, nephrolithiasis, signs of abscess, diverticulitis, no other signs or symptoms of acute surgical abdomen. She will be treated with tramadol, ibuprofen, recommendations for primary care follow-up and return precautions. Departure Diagnosis: Primary Impression: Abdominal pain Abdominal location: left lower quadrant Qualified Codes: R10.32 - Left lower quadrant pain Condition: Stable Patient Instructions: Abdominal Pain, Back Pain W/ Sciatica Additional Instructions: Normal today.. Abdominal pain may be referred pain from back. Recommend exercises at home, follow-up with primary doctor. Return for fevers, vomiting, new or worsening symptoms. KEVIN HOPPER MD December 21, 2018 21:12
[2018-12-21] MEDS ORDERED: ONDA8TAB14 PO (21:38)
[2018-12-21 21:39] VITALS: BP 112/85; PULSE 64; RESP 18
== END 2018-12-21 21:40 | disposition home or self-care (01) ==
LOC: FTE 18:07
DX: R10.32 Left lower quadrant pain (principal)
CPT/HCPCS: 74176; 80053; 81003; 81025; 83690; 85025; J1885; Z7610; 36415; 96372